=== PATIENT | male | born 1990 | race Two or more races ===

== ENCOUNTER 2023-12-02 22:28 | Emergency (ER) | payer MEDICAID ==
[~2023-12-02] VITALS: Ht 185.4 cm; Wt 80.3 kg
[2023-12-02 22:35] VITALS: BP 111/82; PULSE 80; RESP 16; O2SAT 96
[2023-12-03 00:15] LABS: BILIRUBIN,URINE NEGATIVE (Neg); CLARITY,URINE CLEAR (Clear); COLOR,URINE YELLOW (Yellow); GLUCOSE, URINE NEGATIVE (Neg); KETONES,URINE NEGATIVE (Neg); LEUKOCYTE ESTERASE ,URINE NEGATIVE (Neg); NITRITES, URINE NEGATIVE (Neg); OCCULT BLOOD,URINE NEGATIVE (Neg); PROTEIN,URINE NEGATIVE (Neg); UROBILINOGEN,URINE 0.2 E.U/dL (0.2-1.0)
[2023-12-03 01:04] LABS: UA COLLECTION TYPE CLN CATCH MIDSTREAM
== END 2023-12-03 02:17 | disposition home or self-care (01) ==
LOC: ER 22:29
DX: N50.812 Left testicular pain (principal)
CPT/HCPCS: 76870; 81003; 93976; 99284